=== PATIENT | male | born 1960 | race Caucasian/White ===

== ENCOUNTER 2023-07-12 12:44 | Inpatient (IN) ==
[2023-07-12] MEDS ORDERED: cefTRIAXone 1 gm/50 mL D5W 1 GM/50 ML BAG IV ONE (15:11)
[2023-07-12] MEDS ORDERED: Azithromycin 500 mg/250 ml NS 500 MG/250 ML BAG IVPB ONE (15:46)
[2023-07-12 15:58] LABS: ABS Lymphocytes 0.1 10^3/uL (1.0-4.8); ABS Monocytes 0.3 10^3/uL (0.0-1.1); ABS Neutrophils 10.9 10^3/uL (1.5-7.6); Eosinophil % 0.2 %; Hematocrit 40.9 % (38-53); Hemoglobin 13.9 g/dL (13.2-16.3); Lymphocyte % 1.2 %; Mean Corpuscular Hemoglobin 31.8 pg (27-33); Mean Corpuscular Volume 93.4 fL (80-97); Mean Platelet Volume 8.6 fL (7.5-11.2); Platelet Count 192 10^3/uL (150-450); Red Blood Count 4.37 10^6/uL (4.06-5.63); Red Cell Distribution Width 14.6 % (12-17); White Blood Count 11.3 10^3/uL (3.6-10.2)
[2023-07-12] MEDS ORDERED: NS 0.9% 1000 ml BAG 1,000 ML IV ONE ×2 (16:03→17:57)
[2023-07-12 16:11] LABS: Albumin/Globulin Ratio 0.9 (1-3); Calcium 8.4 mg/dL (8.6-10.3); Creatinine, Serum 3.12 mg/dL (0.67-1.17); Globulin 3.4 g/dL (2-4); Potassium 4.1 mmol/L (3.5-5.0); Total Bilirubin 1.3 mg/dL (0.2-1.0); Total Protein 6.4 g/dL (6.4-8.9); eGFR CKD-EPI 21.9 (>60)
[2023-07-12 19:18] LABS: C Reactive Protein 404.42 mg/L (<8.01)
[2023-07-12 20:06] LABS: Urine Appearance Cloudy; Urine Bilirubin Negative (Negative); Urine Blood 2+ (Negative); Urine Color Yellow; Urine Glucose Negative (Negative); Urine Ketones Negative (Negative); Urine Nitrite Negative (Negative); Urine Protein 1+(30 mg/dL) (Negative); Urine Specific Gravity 1.012 (1.002-1.030); Urine Urobilinogen Negative (Negative)
[2023-07-12 20:14] LABS: Urine Bacteria Absent (Absent); Urine Red Blood Cell 2+(6-10/hpf) (Absent); Urine Squamous Epithelial Cell Present (Absent); Urine White Blood Cell 1+(6-10/hpf) (Absent)
[2023-07-12] MEDS: NS 0.9% 1000 ml BAG 1,000 ML IV SCH (22:06)
[2023-07-12] MEDS ORDERED: Benzocaine (plain) Lozenge 15 MG MT PRN (23:54)
[2023-07-13 01:02] LABS: Direct Bilirubin 0.6 mg/dL (0.03-0.18)
[2023-07-13 01:54] LABS: Urine Osmo 398 mOsm/kg (150-1150)
[2023-07-13 01:55] LABS: Osmolality Serum 294 mOsm/kg (275-295)
[2023-07-13 09:27] LABS: Hematocrit 41.1 % (38-53); Mean Corpuscular Hemoglobin 32.3 pg (27-33); Mean Corpuscular Hgb Conc 34.2 g/dL (31-36); Mean Corpuscular Volume 94.3 fL (80-97); Mean Platelet Volume 8.4 fL (7.5-11.2); Platelet Count 206 10^3/uL (150-450); Red Blood Count 4.36 10^6/uL (4.06-5.63); White Blood Count 10.2 10^3/uL (3.6-10.2)
[2023-07-13 09:44] LABS: Albumin 2.6 g/dL (3.2-5.2); Albumin/Globulin Ratio 0.8 (1-3); Calcium 7.9 mg/dL (8.6-10.3); Creatinine, Serum 2.75 mg/dL (0.67-1.17); Globulin 3.2 g/dL (2-4); Potassium 4.1 mmol/L (3.5-5.0); Total Bilirubin 1.5 mg/dL (0.2-1.0); Total Protein 5.8 g/dL (6.4-8.9); eGFR CKD-EPI 25.4 (>60)
[2023-07-13] MEDS ORDERED: Lactated Ringers 1000 ml BAG 1,000 ML IV SCH (14:00)
[2023-07-13] MEDS ORDERED: cefTRIAXone 1 gm/50 mL D5W 1 GM/50 ML BAG IV SCH (16:00)
[2023-07-13] MEDS: Azithromycin 500 mg/250 ml NS 500 MG/250 ML BAG IVPB SCH (16:46)
[2023-07-14 06:00] LABS: ABS Eosinophils 0.1 10^3/uL (0.0-0.5); ABS Lymphocytes 0.3 10^3/uL (1.0-4.8); ABS Monocytes 0.3 10^3/uL (0.0-1.1); ABS Neutrophils 9.6 10^3/uL (1.5-7.6); Eosinophil % 0.7 %; Hematocrit 37.6 % (38-53); Hemoglobin 13.1 g/dL (13.2-16.3); Lymphocyte % 2.4 %; Mean Corpuscular Hemoglobin 32.4 pg (27-33); Mean Corpuscular Hgb Conc 34.8 g/dL (31-36); Mean Platelet Volume 8.1 fL (7.5-11.2); Platelet Count 229 10^3/uL (150-450); Red Blood Count 4.04 10^6/uL (4.06-5.63); Red Cell Distribution Width 14.6 % (12-17); White Blood Count 10.3 10^3/uL (3.6-10.2)
[2023-07-14] MEDS: NS 0.9% 1000 ml BAG 1,000 ML IV SCH ×2 (06:05→17:06)
[2023-07-14 06:14] LABS: Albumin 2.6 g/dL (3.2-5.2); Albumin/Globulin Ratio 0.9 (1-3); Calcium 8.3 mg/dL (8.6-10.3); Creatinine, Serum 2.14 mg/dL (0.67-1.17); Globulin 2.8 g/dL (2-4); Total Bilirubin 1.7 mg/dL (0.2-1.0); Total Protein 5.4 g/dL (6.4-8.9); eGFR CKD-EPI 34.4 (>60)
[2023-07-14] MEDS: Heparin 5000 UNITS/ML 1 mL VIAL SUBCUT SCH ×2 (10:05→20:24)
[2023-07-14] MEDS: Azithromycin 500 mg/250 ml NS 500 MG/250 ML BAG IVPB SCH (15:13)
[2023-07-15] MEDS: NS 0.9% 1000 ml BAG 1,000 ML IV SCH ×2 (03:20→15:35)
[2023-07-15 05:52] LABS: ABS Eosinophils 0.1 10^3/uL (0.0-0.5); ABS Lymphocytes 0.3 10^3/uL (1.0-4.8); ABS Monocytes 0.5 10^3/uL (0.0-1.1); ABS Neutrophils 6.4 10^3/uL (1.5-7.6); ABS Nucleated RBC 0.01 10^3/ul; Eosinophil % 1.1 %; Hematocrit 35.8 % (38-53); Hemoglobin 12.1 g/dL (13.2-16.3); Lymphocyte % 4.4 %; Mean Corpuscular Hemoglobin 31.5 pg (27-33); Mean Corpuscular Hgb Conc 33.7 g/dL (31-36); Mean Corpuscular Volume 93.3 fL (80-97); Mean Platelet Volume 8.4 fL (7.5-11.2); Nucleated Red Blood Cells % 0.1 /100 WBC (0.0-0.4); Platelet Count 256 10^3/uL (150-450); Red Blood Count 3.83 10^6/uL (4.06-5.63); Red Cell Distribution Width 14.5 % (12-17); White Blood Count 7.3 10^3/uL (3.6-10.2)
[2023-07-15 06:09] LABS: Albumin 2.2 g/dL (3.2-5.2); Albumin/Globulin Ratio 0.8 (1-3); Calcium 7.9 mg/dL (8.6-10.3); Creatinine, Serum 1.77 mg/dL (0.67-1.17); Direct Bilirubin 0.7 mg/dL (0.03-0.18); Globulin 2.7 g/dL (2-4); Potassium 4.2 mmol/L (3.5-5.0); Total Bilirubin 1.6 mg/dL (0.2-1.0); Total Protein 4.9 g/dL (6.4-8.9); eGFR CKD-EPI 43.2 (>60)
[2023-07-15 06:10] LABS: Indirect Bilirubin 0.9 mg/dL (0.3-1.0)
[2023-07-15] MEDS: Heparin 5000 UNITS/ML 1 mL VIAL SUBCUT SCH ×2 (10:49→21:16)
[2023-07-15] MEDS: Azithromycin 500 mg/250 ml NS 500 MG/250 ML BAG IVPB SCH (15:30)
[2023-07-16] MEDS: NS 0.9% 1000 ml BAG 1,000 ML IV SCH (01:36)
[2023-07-16 06:39] LABS: ABS Basophils 0.1 10^3/uL (0.0-0.1); ABS Eosinophils 0.2 10^3/uL (0.0-0.5); ABS Lymphocytes 0.2 10^3/uL (1.0-4.8); ABS Monocytes 0.4 10^3/uL (0.0-1.1); Eosinophil % 3.3 %; Hematocrit 35.9 % (38-53); Hemoglobin 12.2 g/dL (13.2-16.3); Lymphocyte % 4.8 %; Mean Corpuscular Hemoglobin 31.7 pg (27-33); Mean Corpuscular Hgb Conc 34.1 g/dL (31-36); Mean Corpuscular Volume 93.2 fL (80-97); Mean Platelet Volume 8.4 fL (7.5-11.2); Nucleated Red Blood Cells % 0.1 /100 WBC (0.0-0.4); Platelet Count 265 10^3/uL (150-450); Red Blood Count 3.85 10^6/uL (4.06-5.63); Red Cell Distribution Width 15.3 % (12-17)
[2023-07-16 06:53] LABS: Albumin 2.1 g/dL (3.2-5.2); Albumin/Globulin Ratio 0.8 (1-3); Direct Bilirubin 0.4 mg/dL (0.03-0.18); Globulin 2.6 g/dL (2-4); Indirect Bilirubin 0.9 mg/dL (0.3-1.0); Magnesium 1.7 mg/dL (1.9-2.7); Total Bilirubin 1.3 mg/dL (0.2-1.0); Total Protein 4.7 g/dL (6.4-8.9)
[2023-07-16] MEDS ORDERED: Magnesium Sulfate IV 1GM/100ML 1 GM/100 ML BAG IV ONE (07:02)
[2023-07-16] MEDS: Heparin 5000 UNITS/ML 1 mL VIAL SUBCUT SCH (08:05)
[2023-07-16 10:50] LABS: Calcium 7.6 mg/dL (8.6-10.3); Potassium 4.4 mmol/L (3.5-5.0)
[2023-07-16 10:56] LABS: Creatinine, Serum 1.63 mg/dL (0.67-1.17); eGFR CKD-EPI 47.6 (>60)
[2023-07-16] MEDS: Azithromycin 500 mg/250 ml NS 500 MG/250 ML BAG IVPB SCH (15:20)
[2023-07-16 16:40] VITALS: BP 154/101
[2023-07-16] MEDS ORDERED: Benzocaine/Menthol LOZ MT PRN (17:00)
== END 2023-07-16 17:36 | disposition home or self-care (01) | DRG 178 ==
LOC: ED 12:44 → EDHOLD 19:50 → SUATTDRO 19:50 → MEDTELE 07-13 15:07
PROVIDERS: ADMIT Student in an Organized Health Care Education/Training Program; ATTEND Hospitalist